=== PATIENT | male | born 1960 | race Caucasian/White ===

== ENCOUNTER 2018-07-30 15:45 | Emergency (ER) | payer OTHER ==
[~2018-07-30] VITALS: Ht 188 cm; Wt 97.5 kg
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
--- NOTE | 2018-07-30 16:00 | NUR ---
PT IS IN CUSTODY WITH [facility].
[2018-07-30] MEDS ORDERED: ACETAMINOPHEN ES 500 MG TABLET PO ONE (16:30)
[2018-07-30] MEDS ORDERED: ACETAMINOPHEN ES 500 MG TABLET ONE (16:30)
[2018-07-30] MEDS ORDERED: IBUPROFEN 600 MG TABLET PO ONE ×2 (16:30)
--- NOTE | 2018-07-30 16:38 | NUR ---
CALLED [facility] RE: XRAY READ
--- NOTE | 2018-07-30 16:51 | NUR ---
Patient discharged to [facility] IN CUSTODY in stable condition. Written and verbal after care instructions given. Patient verbalizes understanding of instruction. PT AMBULATED OUT IN HANDCUFFS WITH A STEADY GAIT. VSS. NAD NOTED.
[2018-07-30 17:00] VITALS: BP 156/87
== END 2018-07-30 17:02 ==
LOC: ER 15:53
DX: M25.532 Pain in left wrist (principal); F17.200 Nicotine dependence, unspecified, uncomplicated; Z02.89 Encounter for other administrative examinations; Y08.89XA Assault by other specified means, initial encounter; Y93.89 Activity, other specified; Y92.89 Other specified places as the place of occurrence of the external cause; Y99.8 Other external cause status
CPT/HCPCS: 73100-TC